=== PATIENT | male | born 1965 | race Caucasian/White ===

== ENCOUNTER 2025-06-24 16:59 | Emergency (ER) | payer SELFPAY ==
[2025-06-24 17:13] VITALS: BP 139/76
[2025-06-24 17:35] LABS: Hematocrit 44.9 % (39.0-52.0); Hemoglobin 15.1 g/dL (13.0-18.0); Mean Corp Hgb Conc. 33.6 g/dL (33.0-37.0); Mean Corpuscular Volume 91.4 fL (80.0-94.0); Nucleated Red Blood Cells % 0 % (-); Platelet Count 215 10^3/uL (130-400); Red Cell Dist. Width 12.8 % (11.5-14.5)
[2025-06-24 17:42] LABS: ALT (SGPT) 28 U/L (0-50); AST (SGOT) 23 U/L (17-59); Albumin 4.7 g/dl (3.5-5.0); Alkaline Phosphatase 87 U/L (38-126); Blood Urea Nitrogen 18 mg/dl (9-20); Calcium 9.7 mg/dl (8.4-10.2); Carbon Dioxide 27 mmol/L (22-30); Chloride 103 mmol/L (98-107); Glucose 110 mg/dl (70-99); Lipase 63 U/L (23-300); Potassium 4.2 mmol/L (3.5-5.1); Sodium 136 mmol/L (135-145); Total Protein 7.7 g/dl (6.3-8.2); eGFR > 60.00
[2025-06-24 19:39] VITALS: BMI 36.9
--- NOTE | 2025-06-24 20:09 | ED.GENMED ---
History of Present Illness
General
Chief Complaint: Abdominal Pain
Source: patient
Exam Limitations: none
Time Seen by Provider: 06/24/25 19:40
Nursing documentation reviewed up to this point in time: agreed with
History of Present Illness
History of Present Illness:
Patient is a 60-year-old male who presents to the ER complaining of upper abdominal pain. Patient reports around 4 PM he developed upper abdominal pain which is sharp and shooting he felt very nauseous and sweaty. This lasted for about 20 minutes.
He denies any associated chest pain. He does report last Wednesday he had an injury and fell landing on his left rib. He saw his family doctor and x-rays were negative. He does report however that he has had this upper abdominal pain in the past
and his family doctor was concerned that it was his aspirin/reflux. He does take aspirin because of previous A-fib status post ablation. He is not on blood thinners.
He denies any shortness of breath denies any pain with deep breath. He is currently asymptomatic.
He does not smoke. Drinks alcohol socially he does drink 2 to 3 cups of coffee a day.
He denies any chest pain /shortness of breath.
Phy Exam
General Physical Exam
General Presentation: no apparent distress
General age: appears stated age
General Skin: warm and dry
General Habitus: normal
General Mental: alert
General Hydration: appears well hydrated
Cardiovascular Exam
Cardiovascular Exam: regular rate/rhythm, no murmur and normal peripheral pulses
Pulmonary Exam
Pulmonary Exam: lungs clear, no respiratory distress and other (mild left anterior lower rib tenderness no ecchymosis)
Gastrointestinal Exam
Gastrointestinal Exam: non tender and soft
Neurological Exam
Neurological Exam: alert and oriented x3
Musculoskeletal Exam
Musculoskeletal Exam: full ROM
Skin Exam
Skin Exam: normal color and warm/dry
Psychiatric Exam
Psychiatric Exam: normal mood/affect
Course
Orders/Labs/Results
Orders:
Orders
06/24/25 17:21
Complete Blood Count/With Diff Urgent
06/24/25 17:22
Comprehensive Metabolic Panel Urgent
Lipase Urgent
06/24/25 20:29
CT Abd/pelvis W Iv Cont Urgent
Comment:
Reason For Exam: upper abd pain (recent left rib injury/trauma )
06/24/25 20:30
0.9% Sodium Chloride 1000 ml [Nss] 1,000 ml IV BOLUS
Pantoprazole [Protonix IV] 40 mg IV NOW STA
06/24/25 23:26
Electrocardiogram (*1) Stat
Reason for Study: Other
Other Reason for Exam: chest pain
EKG- Treatment ONCE
Abnormal Lab Results
06/24/25 06/24/25
17:21 17:22
Absolute Monos (auto) 0.7 H 10^3/uL
(0.1-0.6)
Glucose 110 H mg/dl
(70-99)
06/24/25 17:21
06/24/25 17:22
Vital Signs
Initial and Last Documented VS:
Initial Vital Signs
Temp Pulse Resp BP Pulse Ox
98.4 F 77 17 139/76 97
06/24/25 17:13 06/24/25 17:13 06/24/25 17:13 06/24/25 17:13 06/24/25 17:13
Last Documented Vital Signs
Temp Pulse Resp BP Pulse Ox
98.4 F 77 17 139/76 96
06/24/25 17:13 06/24/25 17:13 06/24/25 17:13 06/24/25 17:13 06/24/25 20:32
MDM/Problems Addressed
Differential Diagnosis Includes:
not limited to: Acute cholecystitis, gastritis reflux
MDM/Problems Addressed:
Patient is a 60-year-old male complains of epigastric abdominal discomfort that occurred prior to arrival. Patient did feel sweaty at the time and was nauseous. Upon presentation patient was asymptomatic abdomen was soft and nontender he has had
this in the past and his family doctor attributed to reflux. His LFTs are normal he denies any fevers he is afebrile. He had no complaints of chest pain or shortness of breath will check an EKG however likely gastritis/flux. He was given a dose
Protonix in the ER. He recently had an injury of his left rib however had outpatient x-rays which were negative. CAT scan today shows mild hepatosplenomegaly, 4 mm pulmonary nodule mod diffuse bilateral renal disease and mild proctitis.
Will DC with outpatient by his family doctor and he does have a GI specialist follow-up as well. Will DC with Protonix
*Radiology
Radiology exam reviewed: radiology read reviewed
*Pulse Oximetry
SaO2: 96
Oxygen Mode of Delivery: Room air
Patient hypoxic: no
*EKG
Interpreted by ED Provider?: Yes
Comparison EKG: no comparison EKG present
Heart Rate: 61
Rate: normal
Rhythm: sinus
Ischemia: no ischemia
*Critical Care Note
Total Time (30-74mins, 75-104mins- exclusive of procedures): Not Applicable
ED Attending Note
-
Portions of this chart may have been created with voice recognition software.� Occasional wrong word or��sound alike� substitutions may have occurred due to the inherent limitations of voice recognition software.
Discharge Plan
Departure
Patient Disposition: Home (Routine Discharge)
Date of Disposition: 06/24/25
Time of Disposition: 23:30
Patient with high blood pressure during this ER visit?: Yes
Condition: Fair
Covid-19: Not Applicable
Discharge Problem:
Gastritis
Instructions: Gastritis (DC), BLOOD PRESSURE
Prescriptions:
New
pantoprazole [Protonix] 40 mg tablet,delayed release (DR/EC)
40 mg PO DAILY Qty: 14 0RF
Referrals:
Silvino,Yassine L., DO [Family Provider, Family Practice]
Activity Restrictions/Additional Instructions:
As discussed please follow-up with your family doctor as well as GI specialist in the next several days for reevaluation of your symptoms. A prescription for Protonix was sent to your pharmacy take as directed. Avoid caffeine spicy foods. Return
if any worsening of symptoms.
Interventions
Interventions:
*Risk Screen - Suicide Last Done: 06/24/25 17:13
*General Assessment Last Done: 06/24/25 17:13
*Neglect/Abuse Screening Last Done: 06/24/25 17:13
*ED- Fall Risk Assessment Last Done: 06/24/25 17:13
*ED COVID-19 Vaccine History Last Done: 06/24/25 17:13
*ED Influenza Vaccine History Last Done: 06/24/25 17:13
ZF-Zegutl-Reqtgmxgnt Assessment Last Done: 06/24/25 19:40
Discharge Date and Time
Print Language: DOMINICAN
[2025-06-24] MEDS: NSS 1000 IV (20:58)
[2025-06-24] MEDS: PROTONIX IV 40 MG IV (20:58)
[2025-06-24 23:39] VITALS: BP 152/82
== END 2025-06-24 23:39 | disposition home or self-care (01) ==
LOC: EMR 16:59
PROVIDERS: EMERGENCY PHYSICIAN Student in an Organized Health Care Education/Training Program; FAMILY PHYSICIAN Family Medicine
DX: K29.70 Gastritis, unspecified, without bleeding (principal); R16.2 Hepatomegaly with splenomegaly, not elsewhere classified; R91.1 Solitary pulmonary nodule; N28.9 Disorder of kidney and ureter, unspecified; I48.91 Unspecified atrial fibrillation; Z79.82 Long term (current) use of aspirin
CPT/HCPCS: 99284; 96374; 96361; 74177; 80053; 83690; 85025; 93005; Q9967